=== PATIENT | male | born 1980 ===

== ENCOUNTER 2021-01-15 12:25 | Emergency (ER) | payer OTHER ==
[~2021-01-15] VITALS: Ht 172.7 cm; Wt 58.2 kg
[2021-01-15 12:29] VITALS: BP 121/74
--- NOTE | 2021-01-15 13:05 | NUR ---
LOGGER ALL ROUND: PT CALLED FOR ROOM, NO ANSWER
--- NOTE | 2021-01-15 13:20 | NUR ---
[id number]
--- NOTE | 2021-01-15 14:24 | NUR ---
BAGGING MACHINE OPERATOR: CALLED FOR ROOM, NO ANSWER
== END 2021-01-15 14:25 | disposition left against medical advice (07) ==
LOC: ED 13:30
DX: Z53.21 Procedure and treatment not carried out due to patient leaving prior to being seen by health care provider (principal)